=== PATIENT | male | born 1970 | race Caucasian/White ===

== ENCOUNTER 2018-07-25 01:01 | Emergency (ER) | payer SELFPAY ==
[~2018-07-25] VITALS: Ht 170.2 cm; Wt 68.1 kg
[2018-07-25] MEDS ORDERED: BUPIVACAINE 0.25% ONE (01:28)
[2018-07-25] MEDS ORDERED: LIDOCAINE-MPF 1%, 5ML ONE (01:28)
[2018-07-25] MEDS ORDERED: BUPIVACAINE/PF-EPI 0.25% 1:200K SQ ONE (01:30)
[2018-07-25] MEDS ORDERED: LIDOCAINE-MPF 1%, 5ML INFIL ONE (01:30)
[2018-07-25] MEDS ORDERED: IBUPROFEN 800 MG TABLET ONE (02:00)
[2018-07-25] MEDS ORDERED: IBUPROFEN 800 MG TABLET PO ONE (02:00)
[2018-07-25 02:03] VITALS: BP 129/82
== END 2018-07-25 02:08 | disposition home or self-care (01) ==
LOC: ED 01:45
DX: K08.89 Other specified disorders of teeth and supporting structures (principal); Z72.9 Problem related to lifestyle, unspecified; F17.210 Nicotine dependence, cigarettes, uncomplicated
CPT/HCPCS: 64400; 99284